=== PATIENT | female | born 1945 | race Caucasian/White ===

== ENCOUNTER 2016-06-13 08:15 | Outpatient (CLI) | payer MEDICARE, MEDICAID | END 2016-06-13 08:16 | disposition home or self-care (01) | DX: Z12.11 Encounter for screening for malignant neoplasm of colon (principal) ==

== ENCOUNTER 2016-06-13 08:48 | Outpatient (CLI) | payer MEDICARE, MEDICAID | END 2016-06-13 08:49 | disposition home or self-care (01) | DX: K72.90 Hepatic failure, unspecified without coma (principal); Z13.6 Encounter for screening for cardiovascular disorders; F31.9 Bipolar disorder, unspecified; F90.9 Attention-deficit hyperactivity disorder, unspecified type; Z12.11 Encounter for screening for malignant neoplasm of colon ==

== ENCOUNTER 2016-06-13 10:42 | Outpatient (CLI) | payer MEDICARE, MEDICAID | END 2016-06-13 10:43 | disposition home or self-care (01) | DX: Z12.31 Encounter for screening mammogram for malignant neoplasm of breast (principal) ==

== ENCOUNTER 2017-05-29 12:00 | Outpatient (CLI) | payer MEDICARE, MEDICAID ==
--- NOTE | 2017-05-29 22:05 | CT Report ---
EXAM: CT TEMPORAL BONE EXAM DATE: 05/29/2017 12:23 PM. CLINICAL HISTORY: Otalgia, left ear. Other acquired stenosis of left. COMPARISON: None. TECHNIQUE: Routine axial CT imaging performed through the temporal bones. Reconstructions: Coronal, s agittal, soft tissue, and bone windows. IV contrast: None. In accordance with CT protocol optimization, one or more of the following dose reduction techniques w ere utilized for this exam: automated exposure control, adjustment of mA and/or KV based on patient s ize, or use of iterative reconstructive technique. FINDINGS: Right Temporal Bone: The right internal auditory canal is normal in appearance. The right labyrinthine segment, geniculate ganglion, tympanic and mastoid segments of the right facial nerve are normal in appearance. The right mastoid air cells, mastoid antrum, aditus ad antrum, and the right middle ear cavity are no rmally aerated. The right auditory ossicles appear to be in normal position without evidence of ossic ular erosion. The right tympanic membrane is without evidence of thickening or perforation. There is a normal appearance of the right external auditory canal. There are 2-1/2 turns of the right cochlea. The modiolus is normal in appearance. The vestibule is normal in appearance. There is a normal bony cap demonstrated over the right superio r semicircular canal. There is no evidence of dehiscence. The right vestibular aqueduct is normal in appearance. The sigmoid plate appears to be intact. Left Temporal Bone: The left internal auditory canal is normal in appearance. The left labyrinthine segment, geniculate g anglion, tympanic and mastoid segments of the left facial nerve are normal in appearance. The left mastoid air cells are normally aerated. The left mastoid antrum, aditus ad antrum, and the l eft middle ear cavity are normally aerated. The left auditory ossicles appear to be in normal positio n without evidence of ossicular erosion. The left tympanic membrane is without evidence of thickening or perforation. There are 2-1/2 turns of the left cochlea. The modiolus is normal in appearance. The vestibule is nor mal in appearance. There is a normal bony cap overlying the left superior semicircular canal. The lef t vestibular aqueduct is normal in appearance. IMPRESSION: 1. Normal CT of the temporal bones. Referring Provider Line: [phone] SITE ID: [id number]
== END 2017-05-29 12:01 | disposition home or self-care (01) ==
LOC: DI 12:00
PROVIDERS: ATTEND Otolaryngology
DX: H92.02 Otalgia, left ear (principal); H61.392 Other acquired stenosis of left external ear canal
CPT/HCPCS: 70480

== ENCOUNTER 2017-07-17 14:48 | Outpatient (CLI) | payer MEDICARE, MEDICAID ==
[2017-07-17 17:45] LABS: BASOPHILS % (AUTO) 0.4 %; EOSINOPHILS # (AUTO) 0.1 10^3/uL (0.0-0.7); EOSINOPHILS % (AUTO) 1.9 %; HGB - HEMOGLOBIN 14.1 g/dL (12.0-16.0); LYMPHOCYTES # (AUTO) 2.2 10^3/uL (1.5-3.5); LYMPHOCYTES % (AUTO) 35.2 %; MEAN CORPUSCULAR HEMOGLOBIN 27.2 pg (27.0-31.0); MEAN CORPUSCULAR HGB CONC 32.7 g/dL (32.0-36.0); MEAN PLATELET VOLUME 8.1 fL (7.9-10.8); MONOCYTES # (AUTO) 0.5 10^3/uL (0.0-1.0); MONOCYTES % (AUTO) 7.7 %; NEUTROPHILS # (AUTO) 3.5 10^3/uL (1.5-6.6); NEUTROPHILS % (AUTO) 54.8 %; PLT - PLATELET COUNT 237 10^3/uL (130-450); RED BLOOD COUNT 5.18 10^6/uL (4.20-5.40); RED CELL DISTRIBUTION WIDTH 14.3 % (12.0-15.0); WHITE BLOOD COUNT 6.4 x10^3/uL (4.8-10.8)
[2017-07-17 18:08] LABS: ALBUMIN 4.4 g/dL (3.2-5.5); ALBUMIN/GLOBULIN RATIO 1.2 (1.0-2.2); ALKALINE PHOSPHATASE 69 IU/L (42-121); ALT ALANINE AMINOTRANSFERASE 18 IU/L (10-60); AST ASPARTATE AMINOTRANSFERASE 21 IU/L (10-42); BILIRUBIN,TOTAL 0.2 mg/dL (0.2-1.0); BUN - BLOOD UREA NITROGEN 24 mg/dL (6-20); CALCIUM 9.2 mg/dL (8.5-10.3); CARBON DIOXIDE - CO2 26 mmol/L (21-32); CHLORIDE 104 mmol/L (101-111); CREATININE 1.1 mg/dL (0.4-1.0); GFR - MDRD 49 (>89); GLUCOSE 99 mg/dL (70-100); LDL CHOLESTEROL,DIRECT 120 mg/dL; SODIUM 137 mmol/L (135-145)
== END 2017-07-17 14:49 | disposition home or self-care (01) ==
LOC: LAB.S 14:48
PROVIDERS: ATTEND Nurse Practitioner Family
DX: Z13.6 Encounter for screening for cardiovascular disorders (principal); I63.9 Cerebral infarction, unspecified; K72.90 Hepatic failure, unspecified without coma; N20.0 Calculus of kidney; B19.20 Unspecified viral hepatitis C without hepatic coma
CPT/HCPCS: 36415; 80053; 83721; 84443; 85025

== ENCOUNTER 2017-07-28 10:13 | Outpatient (CLI) | payer MEDICARE, MEDICAID ==
--- NOTE | 2017-07-28 12:41 | XRAY Report ---
TWO VIEW CHEST: Chest 07/28/2017 COMPARISON: No comparison. INDICATION: Shortness of breath. TECHNIQUE: Two views. FINDINGS: Clear lungs. No pneumothorax or pleural effusion. Mediastinum unremarkable. IMPRESSION: NO EVIDENCE OF ACUTE THORACIC PROCESS. TD: 07/28/2017 12:40 MTDD
== END 2017-07-28 10:14 | disposition home or self-care (01) ==
LOC: DI.S 10:13
PROVIDERS: ATTEND Nurse Practitioner Family
DX: R06.02 Shortness of breath (principal)
CPT/HCPCS: 71046; 93005

== ENCOUNTER 2017-07-30 12:43 | Outpatient (CLI) | payer MEDICARE, MEDICAID | END 2017-07-30 12:44 | disposition home or self-care (01) | LOC: DI 12:43 | PROVIDERS: ATTEND Nurse Practitioner Family | DX: R06.02 Shortness of breath (principal) | CPT/HCPCS: 93306 ==

== ENCOUNTER 2017-07-31 09:26 | Outpatient (CLI) | payer MEDICARE, MEDICAID ==
--- NOTE | 2017-07-31 10:17 | CT Report ---
CT BRAIN WITHOUT CONTRAST: 07/31/2017 CLINICAL INDICATION: Cerebrovascular accident. TECHNIQUE: Axial CT images of the brain were obtained without intravenous contrast. COMPARISON: No previous CT is available for comparison. FINDINGS: The ventricles and sulci demonstrate moderate symmetric enlargement. There is a focal hypodensity in the anterior right internal capsule, likely representing a small lacunar infarction. The basilar cisterns remain patent. There is no evidence of hemorrhage or mass effect. The visualized orbital contents and paranasal sinuses are unremarkable. IMPRESSION: SMALL HYPODENSITY IN THE ANTERIOR RIGHT INTERNAL CAPSULE, LIKELY REPRESENTING A SMALL LACUNAR INFARCTION. CT DOSE REDUCTION STATEMENT In accordance with CT protocol optimization, one or more of the following dose reduction techniques were utilized for this exam: automated exposure control, adjustment of mA and/or KV based on patient size, or use of iterative reconstructive technique. TD: 07/31/2017 10:16
--- NOTE | 2017-07-31 16:16 | Ultrasound Report ---
CAROTID DUPLEX: 07/31/2017 CLINICAL INDICATION: CVA. TECHNIQUE: Real-time sonographic vascular imaging was performed by the firestopper installer through the carotid arteries utilizing both color-flow and Doppler spectral analysis. Multiple insurance claim representative static images were saved for review. RIGHT Vessel PSV cm/sec EDV cm/sec ICA/CCA RSV Ratio Degree of Stenosis Plaque Estimate % RCCA Prox 109 RCCA Dist 86 19 RECA 92 RT BULB 85 22 1.0 KATY Prox 56 17 0.65 KATY Mid 64 12 0.74 KATY Dist 80 26 0.93 RVA 43 RVA flow direction: Antegrade LEFT Vessel PSV cm/sec EDV cm/sec ICA/CCA RSV Ratio Degree of Stenosis Plaque Estimate % LCCA Prox 92 LCCA Dist 96 29 LECA 79 LFT BULB 61 20 0.63 LICA Prox 58 13 0.60 LICA Mid 88 24 0.92 LICA Dist --- --- LVA 26 LVA flow direction: Antegrade Velocity criteria are extrapolated from diameter data as defined by the Society of Radiologists in Ultrasound Consensus Conference Radiology 2003; 229; 340-346. Degree of Stenosis % ICA PSV cm/sec ICA EDV cm/sec ICA/CCA PSV Ratio Plaque Estimate % Normal < 125 < 40 < 2.0 None <50 < 125 <40 < 2.0 < 50 50-69 125-130 40-100 2.0-4.0 >/=50 >/=70 but less than near occlusion > 230 > 100 > 4.0 >/=50 Near occlusion High, low or undetectable Variable Variable Visible Total occlusion Undetectable Not applicable Not applicable No detectable lumen FINDINGS RIGHT: There is minimal plaquing in the right carotid bifurcation, without evidence of a focal hemodynamically significant stenosis. LEFT: There is plaquing in the left carotid bifurcation extending into the left internal carotid artery, with apparent distal occlusion. No flow was identifiable in the distal left internal carotid artery with color or power Doppler. The vertebral arteries demonstrate antegrade flow bilaterally. IMPRESSION: NO VISUALIZED FLOW IN THE LEFT DISTAL INTERNAL CAROTID ARTERY, SUSPICIOUS FOR OCCLUSION. CONFIRMATION WITH EITHER CT ANGIOGRAM OR MR ANGIOGRAM OF THE NECK IS RECOMMENDED. NO EVIDENCE OF A HEMODYNAMICALLY SIGNIFICANT RIGHT CAROTID STENOSIS. PATENT VERTEBRAL ARTERIES BILATERALLY. MTDD
== END 2017-07-31 09:27 | disposition home or self-care (01) ==
LOC: DI 09:26
PROVIDERS: ATTEND Nurse Practitioner Family
DX: I63.9 Cerebral infarction, unspecified (principal)
CPT/HCPCS: 70450; 93880

== ENCOUNTER 2017-08-07 10:25 | Outpatient (CLI) | payer MEDICARE, MEDICAID ==
[2017-08-07 17:52] LABS: BASOPHILS # (AUTO) 0.1 10^3/uL (0.0-0.1); EOSINOPHILS # (AUTO) 0.1 10^3/uL (0.0-0.7); EOSINOPHILS % (AUTO) 2.3 %; HGB - HEMOGLOBIN 13.6 g/dL (12.0-16.0); LYMPHOCYTES # (AUTO) 1.9 10^3/uL (1.5-3.5); LYMPHOCYTES % (AUTO) 35.1 %; MEAN CORPUSCULAR HGB CONC 32.5 g/dL (32.0-36.0); MEAN CORPUSCULAR VOLUME 83.1 fL (81.0-99.0); MEAN PLATELET VOLUME 8.1 fL (7.9-10.8); MONOCYTES # (AUTO) 0.4 10^3/uL (0.0-1.0); MONOCYTES % (AUTO) 7.8 %; NEUTROPHILS # (AUTO) 2.9 10^3/uL (1.5-6.6); NEUTROPHILS % (AUTO) 53.8 %; PLT - PLATELET COUNT 247 10^3/uL (130-450); RED BLOOD COUNT 5.03 10^6/uL (4.20-5.40); RED CELL DISTRIBUTION WIDTH 14.2 % (12.0-15.0); WHITE BLOOD COUNT 5.4 x10^3/uL (4.8-10.8)
[2017-08-07 17:53] LABS: CALCIUM 9.2 mg/dL (8.5-10.3); CREATININE 0.8 mg/dL (0.4-1.0)
== END 2017-08-07 10:26 | disposition home or self-care (01) ==
LOC: LAB.F 10:25
PROVIDERS: ATTEND Nurse Practitioner Family
DX: R94.4 Abnormal results of kidney function studies (principal)
CPT/HCPCS: 36415; 80048; 85025

== ENCOUNTER 2017-09-07 07:50 | Outpatient (CLI) | payer MEDICARE, MEDICAID ==
[2017-09-07] MEDS ORDERED: IOPAMIDOL-300 100 ML VIAL IVP ONE ×2 (07:51→15:46)
[2017-09-07] MEDS ORDERED: IOPAMIDOL-300 100 ML VIAL ONE (09:19)
--- NOTE | 2017-09-07 11:01 | MRI Report ---
EXAM: MRI BRAIN WITHOUT CONTRAST EXAM DATE: 09/07/2017 08:52 AM. CLINICAL HISTORY: Cerebrovascular accident, unspecified mechanism. COMPARISON: No prior MRI. TECHNIQUE: Multiplanar, multisequence T1-weighted and fluid-sensitive MR sequences of the brain were performed. Sequences optimized for routine evaluation. Other: None. IV Contrast: None. FINDINGS: There is a 4-5 mm focus of right basal ganglia diffusion hyperintensity. Possible accompany ing restricted diffusion though the small lesion size makes accurate characterization difficult. Ther e is accompanying focal T2 hyperintensity, findings likely represent a subacute small vessel perforat or lacunar type infarct. No other evidence for acute or recent ischemic infarct or cerebral hemorrhage. Normal brain volume for age. Moderately prominent multifocal nonspecific white matter disease. Findings are likely secondary to ag ing and chronic additional small vessel ischemic disease involving basal ganglia and white matter. No hydrocephalus, mass effect or midline shift. The major arterial skull base flow voids are present. No acute-appearing sinus or mastoid disease. Symmetric unremarkable appearance of the orbits. No evidence for space-occupying mass in the region o f the pituitary fossa or suprasellar cistern. IMPRESSION: 1. Probable acute to subacute ischemic infarct of the right basal ganglia. 2. No acute hemorrhage. 3. There are additional findings of multifocal chronic small vessel ischemic disease. [facility] Referring Provider Line: [phone] SITE ID: [id number]
--- NOTE | 2017-09-08 10:19 | CT Report ---
EXAM: CT ANGIOGRAM HEAD. CT SCAN OF THE HEAD WITHOUT AND WITH CONTRAST. EXAM DATE: 09/07/2017 11:26 AM CLINICAL HISTORY: Recent cerebrovascular accident. MRI findings recently suspicious for right basal g anglia infarct. COMPARISON: No prior CTA. TECHNIQUE: - CT Scan Head: Using a multidetector scanner, axial images were acquired from the foramen magnum to the skull vertex prior to and following contrast administration. - CT Angiogram: Using a multidetector scanner, high-resolution axial images were acquired from the sk ull base through vertex following rapid infusion of intravenous contrast. Reformats: Multiplanar MIP reformats were reconstructed. Nascet criteria used for stenosis measurement. IV Contrast: 80 mL Isovue 300. In accordance with CT protocol optimization, one or more of the following dose reduction techniques w ere utilized for this exam: automated exposure control, adjustment of mA and/or KV based on patient s ize, or use of iterative reconstructive technique. FINDINGS: Brain CT Without Contrast: No acute hemorrhage. No mass effect or shift. No evidence for developing cortical infarct. There are findings consistent with multifocal small vessel ischemic disease including in the region of the righ t basal ganglia where there is hypodensity that may be from a recent small vessel infarct of the righ t basal ganglia. Brain CT With Contrast: No abnormal enhancement. Head CT Angiogram: Moderately prominent atherosclerotic calcifications of the cavernous and paraclinoid segments of both internal carotid arteries. The distal left cavernous ICA shows focal luminal stenosis with calcifica tion, 45-50%. Mild atherosclerotic disease of the cervical vertebral arteries, left greater than right, without ass ociated hemodynamically significant stenosis. Unremarkable basilar artery. Moderate to severe focal short stenosis of the distal left COLOR REPAIRER P1 segment. No acute abnormality or focal flow-limiting stenosis of the right COLOR REPAIRER. Patent well-developed right po sterior communicating artery. Patent anterior communicating artery. No acute abnormality or focal flow-limiting stenosis of the ant erior cerebral arteries. No acute abnormality or focal flow-limiting stenosis of the middle cerebral arteries. No evidence for [place] of [place] aneurysm. No evidence for major dural venous sinus thrombus. IMPRESSION: 1. No CT evidence for intracranial enhancing mass or acute hemorrhage. 2. There are findings of small vessel ischemic disease including right basal ganglia hypodensity cons istent with subacute small vessel infarct. 3. Prominent bilateral cavernous and paraclinoid ICA atherosclerotic calcifications. The distal left cavernous ICA shows short segment 45-50% stenosis. 4. Moderate to severe focal short segment stenosis of the proximal left posterior cerebral artery. 5. No other evidence for intracranial large artery flow-limiting stenosis or occlusion. [facility] Referring Provider Line: [phone] SITE ID: [id number]
--- NOTE | 2017-09-08 10:19 | CT Report ---
EXAM: CT ANGIOGRAM NECK EXAM DATE: 09/07/2017 11:26 AM. CLINICAL HISTORY: Probable recent lacunar-like infarct in the right basal ganglia. COMPARISON: None. TECHNIQUE: Routine axial helical imaging was performed from the skull base through the aortic arch. R econstructions: Routine multiplanar 3D MIP reconstructions. IV Contrast: 80 mL Isovue-300. Evaluation of arterial stenosis is based on a NASCET method of measurement. In accordance with CT protocol optimization, one or more of the following dose reduction techniques w ere utilized for this exam: automated exposure control, adjustment of mA and/or KV based on patient s ize, or use of iterative reconstructive technique. FINDINGS: Prominent chronic multilevel degenerative cervical spinal spondylosis. Multinodular heterogeneously e nhancing thyroid gland. Several mildly expansile nodules are present in both lobes of the thyroid gla nd with peripheral hyperdensity and reduced density centrally, largest 1.5 cm on the right. Multinodu lar goiter is suspected. The top of the aortic arch and the origins of the great vessels are patent. Mild distal aortic arch a therosclerotic calcification. No evidence for proximal flow-limiting subclavian artery stenosis. No acute abnormality or significant stenosis of the cervical vertebral arteries. The cervical carotid arteries are mildly tortuous and there is minimal to mild atherosclerotic diseas e, most evident in the region of the right cervical carotid bifurcation where there is a small amount of soft plaque with a few foci of plaque calcification but there is no evidence for acute abnormalit y or hemodynamically significant stenosis of the cervical carotid arteries in the neck. IMPRESSION: 1. The cervical vertebral and carotid arteries are patent and there is no evidence for acute abnormal ity or focal flow-limiting stenosis. 2. Multinodular heterogeneously enhancing thyroid gland, multinodular goiter suspected. 3. Prominent findings of chronic multilevel degenerative cervical spinal spondylosis. [facility] Referring Provider Line: [phone] SITE ID: [id number]
== END 2017-09-07 07:51 | disposition home or self-care (01) ==
LOC: DI 07:50
PROVIDERS: ATTEND Psychiatry & Neurology Neurology
DX: I63.9 Cerebral infarction, unspecified (principal); E04.2 Nontoxic multinodular goiter; M47.892 Other spondylosis, cervical region; I67.82 Cerebral ischemia; I65.23 Occlusion and stenosis of bilateral carotid arteries; I66.22 Occlusion and stenosis of left posterior cerebral artery
CPT/HCPCS: 70496; 70498; 70551; Q9967

== ENCOUNTER 2017-09-28 14:50 | Outpatient (CLI) | payer MEDICARE, MEDICAID ==
--- NOTE | 2017-09-29 11:54 | Ultrasound Report ---
THYROID ULTRASOUND: 09/28/2017 CLINICAL INDICATION: Goiter. COMPARISON: Carotid ultrasound 07/31/2017, neck CT 09/07/2017. TECHNIQUE: Real-time scanning was performed with fundraising sale representative static images obtained. FINDINGS: The right lobe measures 5.0 x 2.5 x 2.3 cm, and the left lobe measures 5.0 x 2.2 x 2.0 cm. The isthmus measures 7 mm. The thyroid is diffusely heterogeneous with innumerable bilateral nodules. The largest in the midpole of the right lobe measures 2.2 x 1.9 x 1.4 cm. It is avascular and isoechoic. In the upper pole of the right lobe, there is a 2.2 x 1.4 x 1.0 cm heterogeneous nodule with associated calcifications. In the upper pole of the left lobe, there is a 1.7 x 1.6 x 1.2 cm nodule, which is heterogeneous with associated calcifications. A 2.0 x 2.0 x 1.4 cm nodule is also noted in the isthmus. IMPRESSION: 1. DIFFUSE MULTINODULAR GOITER. 2. THERE ARE 2 NODULES WITH HETEROGENEOUS ECHOTEXTURE AND ASSOCIATED CALCIFICATIONS. FINE NEEDLE ASPIRATION OF THESE MOST SUSPICIOUS NODULES WOULD BE RECOMMENDED. TD: 09/29/2017 10:38
== END 2017-09-28 14:51 | disposition home or self-care (01) ==
LOC: DI 14:50
PROVIDERS: ATTEND Nurse Practitioner Family
DX: E04.2 Nontoxic multinodular goiter (principal)
CPT/HCPCS: 76536

== ENCOUNTER 2017-09-28 16:23 | Emergency (ER) | payer MEDICARE, MEDICAID ==
--- NOTE | 2017-09-28 16:46 | ED Physician Documentation ---
PD HPI FOCAL NEURO - Stated complaint Stated Complaint: DBL VISION/HEAD PX - Chief complaint Chief Complaint: Neuro - History obtained from History obtained from: Patient, Friend - History of Present Illness Timing - onset: Other (She had a small right basal ganglia CVA couple of months ago. She has had gradual onset left-sided headaches over the last few weeks and starting yesterday she has Had diplopia that is only when looking at a distance. She recently saw her Eye doctor and her eyes were okay. There are no symptoms of stroke other than the diplopia and headache.) Review of Systems Ten Systems: 10 systems reviewed and negative Constitutional: denies: Fever, Chills Eyes: denies: Loss of vision, Decreased vision Cardiac: denies: Chest pain / pressure, Palpitations PD PAST MEDICAL HISTORY - Past Surgical History Past Surgical History: Yes - Present Medications Home Medications: Ambulatory Orders Medication Instructions Recorded Confirmed Aspirin 81 mg PO 09/28/17 Atorvastatin [Lipitor] 20 mg 09/28/17 Clopidogrel [Plavix] 75 mg PO DAILY #30 tablet 09/28/17 Niacin [Plain Niacin] 150 mg PO 09/28/17 - Allergies Allergies/Adverse Reactions: Allergies Allergy/AdvReac Type Severity Reaction Status Date / Time No Known Drug Allergies Allergy Verified 03/31/13 19:13 - Social History Does the pt smoke?: Yes Smoking Status: Current every day smoker Does the pt drink ETOH?: No Does the pt have substance abuse?: No - Immunizations Immunizations are current?: No Immunizations: TDAP >10years/unknown PD ED PE NORMAL - Vitals Vital signs reviewed: Yes - General General: Alert and oriented X 3, No acute distress - HEENT HEENT: PERRL, EOMI - Neck Neck: Supple, no meningeal sign, No bony TTP - Cardiac Cardiac: RRR, No murmur - Respiratory Respiratory: No respiratory distress, Clear bilaterally - Neuro Neuro: Alert and oriented X 3, geriatric aide 2-12 intact Eye Opening: Spontaneous Motor: Obeys Commands Verbal: Oriented GCS Score: 15 - Psych Psych: Normal mood, Normal affect NIHSS - Time Time: 16:35 - Level of Consciousness Level of consciousness: (0) Alert, Keenly responsive LOC Questions: (0) Answers both Q's correct LOC Commands: (0) Performs both correctly - Gaze Best Gaze: (0) Normal - Visual Visual: (0) No loss - Facial Palsy Facial Palsy: (0) Normal, symmetrical movement - Motor Arms (both separate) Motor Arm (right): (0) No drift Motor Arm (left): (0) No drift - Motor Legs (both separate) Motor Leg (right): (0) No drift Motor Leg (left): (0) No drift - Limb Ataxia Limb Ataxia: (0) Absent - Sensory Sensory: (0) Normal - Best Language Best Language: (0) No aphasia - Dysarthria Dysarthria: (0) Normal - Extinction and Inattention (formally neg Extinction and inattention: (0) No abnormality - Total Score/Results Total Score/Result: 0 Results - Vitals Vitals: Vital Signs - 24 hr 09/28/17 09/28/17 09/28/17 16:29 18:19 18:33 Temperature 36.8 C Heart Rate 76 85 66 Respiratory 18 15 17 Rate Blood Pressure 203/104 H 192/89 H 168/82 H O2 Saturation 100 100 99 09/28/17 20:07 Temperature Heart Rate 61 Respiratory 22 Rate Blood Pressure 179/101 H O2 Saturation 97 Oxygen O2 Source Room air - Labs Labs: Laboratory Tests 09/28/17 09/28/17 09/28/17 16:48 16:48 16:48 WBC 5.7 RBC 5.02 Hgb 13.7 Hct 42.0 MCV 83.7 MCH 27.3 MCHC 32.6 RDW 14.6 Plt Count 226 MPV 7.5 L Neut # 2.8 Lymph # 2.3 [place] # 0.4 Eos # 0.1 Baso # 0.0 Absolute Nucleated RBC 0.01 Nucleated RBC % 0.1 PT 11.9 INR 1.1 Sodium 138 Potassium 3.5 Chloride 102 Carbon Dioxide 26 Anion Gap 10.0 BUN 22 H Creatinine 0.9 Estimated GFR (MDRD) 62 L Glucose 150 H Calcium 9.5 Total Bilirubin 0.6 AST 26 ALT 22 Alkaline Phosphatase 65 Total Protein 8.1 Albumin 4.7 Globulin 3.4 Albumin/Globulin Ratio 1.4 Lipase 48 - Rads (name of study) MRI Brain Radiology: Discussed with rads (Slight worsening of the same CVA seen a month ago.) PD MEDICAL DECISION MAKING - ED course ED course: 71-year-old woman with strokelike symptoms. She had a recent CVA and she was re -MRI and the CVA has increased in size. As such we will add Plavix to her aspirin and advised close neurologic follow-up. Departure - Departure Disposition: 01 Home, Self Care Clinical Impression: Cerebrovascular accident (CVA) Qualifiers: CVA mechanism: unspecified Qualified Code(s): I63.9 - Cerebral infarction, unspecified Condition: Good Record reviewed to determine appropriate education?: Yes Instructions: ED Stroke Completed Prescriptions: Clopidogrel [Plavix] 75 mg PO DAILY #30 tablet Comments: Continue your current medications including aspirin. Follow-up with your neurologist with the MRI report, next available appointment. Return if worse.
[2017-09-28 16:53] LABS: BASOPHILS % (AUTO) 0.6 %; EOSINOPHILS # (AUTO) 0.1 10^3/uL (0.0-0.7); EOSINOPHILS % (AUTO) 2.5 %; HGB - HEMOGLOBIN 13.7 g/dL (12.0-16.0); LYMPHOCYTES # (AUTO) 2.3 10^3/uL (1.5-3.5); LYMPHOCYTES % (AUTO) 40.6 %; MEAN CORPUSCULAR HEMOGLOBIN 27.3 pg (27.0-31.0); MEAN CORPUSCULAR HGB CONC 32.6 g/dL (32.0-36.0); MEAN CORPUSCULAR VOLUME 83.7 fL (81.0-99.0); MEAN PLATELET VOLUME 7.5 fL (7.9-10.8); MONOCYTES # (AUTO) 0.4 10^3/uL (0.0-1.0); MONOCYTES % (AUTO) 7.1 %; NEUTROPHILS # (AUTO) 2.8 10^3/uL (1.5-6.6); NEUTROPHILS % (AUTO) 49.2 %; PLT - PLATELET COUNT 226 10^3/uL (130-450); RED BLOOD COUNT 5.02 10^6/uL (4.20-5.40); RED CELL DISTRIBUTION WIDTH 14.6 % (12.0-15.0); WHITE BLOOD COUNT 5.7 x10^3/uL (4.8-10.8)
[2017-09-28 16:59] LABS: INR 1.1 (0.8-1.2); PT - PROTHROMBIN TIME 11.9 secs (9.9-12.6)
[2017-09-28 17:03] LABS: ALBUMIN 4.7 g/dL (3.2-5.5); ALBUMIN/GLOBULIN RATIO 1.4 (1.0-2.2); BILIRUBIN,TOTAL 0.6 mg/dL (0.2-1.0); CALCIUM 9.5 mg/dL (8.5-10.3); CREATININE 0.9 mg/dL (0.4-1.0); TOTAL PROTEIN 8.1 g/dL (6.7-8.2)
--- NOTE | 2017-09-28 20:40 | MRI Preliminary Report ---
Exam: MRI BRAIN W/O Impression: 1. There is an acute to subacute cerebral infarction involving the right putamen without evidence of overt hemorrhagic transformation. Without the patient's prior imaging study I cannot determine if the re is been an interval change in the patient's known recent cerebral infarction. 2. There is mild to moderate degree of chronic small vessel ischemia and mild degree of generalized v olume loss. 3. There is no evidence of brain mass. The critical result notification system was initiated by Dr. Kannan Arenas at 18:25 hrs on 09/28/17. Addendum: The patient's prior MRI of the brain from 09/07/2017 has become available for review. There was diffu naomi restriction within the right putamen on the previous MRI but has significantly increased in size previously measuring 2.8 mm and now measuring 6 mm. Therefore, there has either been a recent new ar ea of cerebral infarction which is surrounding the previous area versus represents residual areas of signal change secondary to a more remote progression of that area of infarction. Overall given the re duced signal intensity on the ADC map a more recent area of superimposed infarction on the older infa rction would be somewhat favored. Recommend correlation with clinical symptoms. The above findings were discussed with CATE Boateng by Dr. Kannan Arenas at 20:38 hrs on . SITE ID: [id number]
--- NOTE | 2017-09-28 20:46 | MRI Report ---
EXAM: MRI BRAIN WITHOUT CONTRAST EXAM DATE: 09/28/2017 05:55 PM. CLINICAL HISTORY: Diplopia, recent CVA. COMPARISON: None. TECHNIQUE: Multiplanar, multisequence T1-weighted and fluid-sensitive MR sequences of the brain were performed. Sequences optimized for routine evaluation. Other: None. IV Contrast: None. FINDINGS: There is diffusion restriction demonstrated within the right putamen (14, 505). The pituitary and kiko la are normal. The corpus callosum is of normal size and configuration. The craniocervical junction is normal. The cerebral vascular flow voids are patent. The images are degraded by motion. The T2* sequence is normal. There is no evidence of subacute or ch ronic hemorrhage. The imaged portions of the paranasal sinuses are normally aerated. The bilateral parotid spaces exhib it normal signal intensity. The optic nerves demonstrate symmetric signal intensity and size. The cerebral vascular flow voids a re patent. The FLAIR images demonstrate multiple punctate and confluent areas of T2 hyperintensity within the jones bcortical, deep, and periventricular white matter. This is consistent with a mild to moderate degree of chronic small vessel ischemia. There is enlargement of the lateral ventricles and the third ventri ji but not out of proportion to the enlargement of the cerebral sulci. This is consistent with a mil d degree of generalized volume loss. IMPRESSION: 1. There is an acute to subacute cerebral infarction involving the right putamen without evidence of overt hemorrhagic transformation. Without the patient's prior imaging study, I cannot determine if th ere has been an interval change in the patient's known recent cerebral infarction. 2. There is a mild to moderate degree of chronic small vessel ischemia and a mild degree of generaliz ed volume loss. 3. There is no evidence of brain mass. The critical result notification system was initiated by Dr. Kannan Arenas at 18:25 hrs on 09/28/17. Addendum: The patient's prior MRI of the brain from 09/07/2017 has become available for review. There was diffu naomi restriction within the right putamen on the previous MRI but has significantly increased in size previously measuring 2.8 mm and now measuring 6 mm. Therefore, there has either been a recent new ar ea of cerebral infarction which is surrounding the previous area versus represents residual areas of signal change secondary to a more remote progression of that area of infarction. Overall given the re duced signal intensity on the ADC map, a more recent area of superimposed infarction on the older inf arction would be somewhat favored. Recommend correlation with clinical symptoms. The above findings were discussed with CATE Boateng by Dr. Kannan Arenas at 20:38 hrs on . Referring Provider Line: [phone] SITE ID: [id number]
[2017-09-28] MEDS ORDERED: CLOPIDOGREL 75 MG TABLET PO STA (20:49)
[2017-09-28 21:00] VITALS: BP 192/91
== END 2017-09-28 21:01 | disposition home or self-care (01) ==
LOC: ED 16:23
DX: I63.9 Cerebral infarction, unspecified (principal); R51 Headache; H53.2 Diplopia; F17.200 Nicotine dependence, unspecified, uncomplicated; Z79.82 Long term (current) use of aspirin; E04.2 Nontoxic multinodular goiter
CPT/HCPCS: 36415; 70551; 76536; 80053; 83690; 85025; 85610; 99284; A9270

== ENCOUNTER 2017-11-28 08:06 | Outpatient (CLI) | payer MEDICARE, MEDICAID ==
[2017-11-28 13:32] LABS: ALBUMIN 3.7 g/dL (3.2-5.5); ALKALINE PHOSPHATASE 58 IU/L (42-121); ALT ALANINE AMINOTRANSFERASE 18 IU/L (10-60); AST ASPARTATE AMINOTRANSFERASE 19 IU/L (10-42); BILIRUBIN,TOTAL 0.7 mg/dL (0.2-1.0); BUN - BLOOD UREA NITROGEN 20 mg/dL (6-20); CALCIUM 8.7 mg/dL (8.5-10.3); CARBON DIOXIDE - CO2 23 mmol/L (21-32); CHLORIDE 107 mmol/L (101-111); CHOL/HDL RATIO 4.7 (<4.4); CHOLESTEROL 159 mg/dL; CREATININE 0.8 mg/dL (0.4-1.0); GFR - MDRD 71 (>89); GLUCOSE 115 mg/dL (70-100); HDL CHOLESTEROL 34 mg/dL; LDL CHOLESTEROL,CALCULATED 88 mg/dL; LDL/HDL RATIO 2.6 (<4.4); SODIUM 138 mmol/L (135-145); TOTAL PROTEIN 7.3 g/dL (6.7-8.2); VLDL CHOLESTEROL 37 mg/dL
== END 2017-11-28 08:07 | disposition home or self-care (01) ==
LOC: LAB.F 08:06
PROVIDERS: ATTEND Nurse Practitioner Family
DX: K72.90 Hepatic failure, unspecified without coma (principal); I10 Essential (primary) hypertension; I63.9 Cerebral infarction, unspecified
CPT/HCPCS: 36415; 80053; 80061; 83721

== ENCOUNTER 2018-03-02 13:27 | Outpatient (CLI) | payer MEDICARE, MEDICAID ==
[~2018-03-02 13:27] MED LIST: IOTHALAMATE MEGLUMINE 50 ML VIAL ONE
[2018-03-02] MEDS ORDERED: IOTHALAMATE MEGLUMINE 50 ML VIAL ONE (13:36)
[2018-03-02] MEDS ORDERED: IOTHALAMATE MEGLUMINE 50 ML VIAL IVP ONE (15:13)
[2018-03-02] MEDS ORDERED: methylPREDNISolone ACETATE 80 MG/ML VIAL IU ONE (15:13)
[2018-03-02] MEDS ORDERED: BUPIVACAINE 0.25% PF 30 ML VIAL SUBQ ONE (15:13)
--- NOTE | 2018-03-02 16:45 | XRAY Report ---
Reason: PRIMARY OSTEOARTHRITIS OF RIGHT HIP Procedure Date: 03/02/2018 Accession Number: [id number] / [id number] Procedure: FL - Inj/Aspiration Major Joint CPT Code: FULL RESULT: EXAM: Inj/Aspiration Major Joint DATE: 03/02/2018 3:09 PM CLINICAL HISTORY: PRIMARY OSTEOARTHRITIS OF RIGHT HIP severe right hip pain COMPARISON: None. TECHNIQUE: The risks, benefits, and alternatives of the procedure were discussed with the patient. All questions were answered. Written and verbal consent were obtained. The right hip joint was marked under fluoroscopy and prepped and draped in a sterile manner. Local anesthesia was performed with 1% lidocaine. A 22-gauge needle was then inserted into the hip joint. Intra-articular positioning of the needle tip was confirmed with the injection of a small amount of Conray. 80 mg of methylprednisolone and approximately 5 cc of bupivacaine were then injected. The needle was removed without immediate complication. Other: None. Fluoroscopic exposure time: 1 minute 5 seconds. Number of fluoroscopic images: 3. FINDINGS: Bones and Joints: No fracture or subluxation. Degenerative changes are present. Injection: Fluoroscopic images demonstrate needle placement and contrast in the hip joint. The patient experienced significant decrease in her pain post injection IMPRESSION: Successful fluoroscopically guided steroid and anesthetic injection of the right hip. RADIA
== END 2018-03-02 13:28 | disposition home or self-care (01) ==
LOC: DI 13:27
PROVIDERS: ATTEND Orthopaedic Surgery
DX: M16.11 Unilateral primary osteoarthritis, right hip (principal)
CPT/HCPCS: 20610; Q9961

== ENCOUNTER 2018-05-21 12:42 | Outpatient (CLI) | payer MEDICARE, MEDICAID ==
--- NOTE | 2018-05-21 16:29 | XRAY Report ---
Reason: HIP JOINT PAIN Procedure Date: 05/21/2018 Accession Number: [id number] / [id number] Procedure: XR - Hip w/Pelvis 2-3V RT CPT Code: FULL RESULT: EXAM: RIGHT HIP AND PELVIS RADIOGRAPHY. EXAM DATE: 05/21/2018 03:44 PM. HISTORY: Hip joint pain. COMPARISONS: None. TECHNIQUE: 1 view of the pelvis and 1 view of the hip. FINDINGS: Bones: Normal. No fracture or bone lesion. Joints: There is asymmetric narrowing of the hip joint space, right greater than left moderate to severe on this side. The sacroiliac joints are congruent. The pubic symphysis is normal. Soft Tissues: Normal. No soft tissue swelling. IMPRESSION: Degenerative changes with no fracture or dislocation detected. RADIA
== END 2018-05-21 12:43 | disposition home or self-care (01) ==
LOC: DI 12:42
PROVIDERS: ATTEND Nurse Practitioner Family
DX: M16.0 Bilateral primary osteoarthritis of hip (principal)

== ENCOUNTER 2018-07-23 09:13 | Outpatient (CLI) | payer MEDICARE, MEDICAID ==
[2018-07-23 18:20] LABS: BASOPHILS # (AUTO) 0.1 10^3/uL (0.0-0.1); BASOPHILS % (AUTO) 1.1 %; EOSINOPHILS # (AUTO) 0.1 10^3/uL (0.0-0.7); EOSINOPHILS % (AUTO) 1.5 %; HGB - HEMOGLOBIN 12.9 g/dL (12.0-16.0); LYMPHOCYTES # (AUTO) 1.9 10^3/uL (1.5-3.5); LYMPHOCYTES % (AUTO) 33.4 %; MEAN CORPUSCULAR HEMOGLOBIN 27.4 pg (27.0-31.0); MEAN CORPUSCULAR HGB CONC 32.5 g/dL (32.0-36.0); MEAN CORPUSCULAR VOLUME 84.4 fL (81.0-99.0); MEAN PLATELET VOLUME 7.7 fL (7.9-10.8); MONOCYTES # (AUTO) 0.4 10^3/uL (0.0-1.0); MONOCYTES % (AUTO) 7.5 %; NEUTROPHILS # (AUTO) 3.2 10^3/uL (1.5-6.6); NEUTROPHILS % (AUTO) 56.5 %; PLT - PLATELET COUNT 252 10^3/uL (130-450); RED BLOOD COUNT 4.72 10^6/uL (4.20-5.40); RED CELL DISTRIBUTION WIDTH 14.9 % (12.0-15.0); WHITE BLOOD COUNT 5.7 x10^3/uL (4.8-10.8)
[2018-07-23 19:10] LABS: HB2 TOTAL 14.1 g/dL; HEMOGLOBIN A1C 0.68 g/dL; HEMOGLOBIN A1C % 6.6 % (4.6-6.2)
[2018-07-23 19:17] LABS: ALBUMIN 3.8 g/dL (3.2-5.5); ALKALINE PHOSPHATASE 62 IU/L (42-121); ALT ALANINE AMINOTRANSFERASE 17 IU/L (10-60); AST ASPARTATE AMINOTRANSFERASE 20 IU/L (10-42); BILIRUBIN,TOTAL 0.5 mg/dL (0.2-1.0); BUN - BLOOD UREA NITROGEN 24 mg/dL (6-20); CALCIUM 9.2 mg/dL (8.5-10.3); CARBON DIOXIDE - CO2 24 mmol/L (21-32); CHLORIDE 103 mmol/L (101-111); CHOL/HDL RATIO 4.3 (<4.4); CHOLESTEROL 170 mg/dL; CREATININE 0.8 mg/dL (0.4-1.0); GFR - MDRD 71 (>89); GLUCOSE 117 mg/dL (70-100); HDL CHOLESTEROL 40 mg/dL; LDL CHOLESTEROL,CALCULATED 92 mg/dL; LDL/HDL RATIO 2.3 (<4.4); SODIUM 137 mmol/L (135-145); TOTAL PROTEIN 7.5 g/dL (6.7-8.2); VLDL CHOLESTEROL 38 mg/dL
== END 2018-07-23 09:14 | disposition home or self-care (01) ==
LOC: LAB.F 09:13
PROVIDERS: ATTEND Nurse Practitioner Family
DX: E78.5 Hyperlipidemia, unspecified (principal); R73.01 Impaired fasting glucose
CPT/HCPCS: 36415; 80053; 80061; 83036; 83721; 84443; 85025

== ENCOUNTER 2018-07-23 13:18 | Outpatient (CLI) | payer MEDICARE, MEDICAID | END 2018-07-23 13:19 | disposition home or self-care (01) | LOC: DI 13:18 | PROVIDERS: ATTEND Nurse Practitioner Family | DX: R01.1 Cardiac murmur, unspecified (principal); I10 Essential (primary) hypertension; E78.5 Hyperlipidemia, unspecified; R73.01 Impaired fasting glucose | CPT/HCPCS: 36415; 80053; 80061; 83036; 83721; 84443; 85025; 93306 ==

== ENCOUNTER 2018-12-20 09:16 | Outpatient (CLI) | payer MEDICARE, MEDICAID ==
[2018-12-20 17:36] LABS: BASOPHILS % (AUTO) 0.6 %; EOSINOPHILS # (AUTO) 0.1 10^3/uL (0.0-0.7); EOSINOPHILS % (AUTO) 1.5 %; HGB - HEMOGLOBIN 13.6 g/dL (12.0-16.0); LYMPHOCYTES # (AUTO) 2.1 10^3/uL (1.5-3.5); LYMPHOCYTES % (AUTO) 31.6 %; MEAN CORPUSCULAR HGB CONC 31.6 g/dL (32.0-36.0); MEAN CORPUSCULAR VOLUME 88.5 fL (81.0-99.0); MEAN PLATELET VOLUME 9.9 fL (7.9-10.8); MONOCYTES # (AUTO) 0.5 10^3/uL (0.0-1.0); MONOCYTES % (AUTO) 8.2 %; NEUTROPHILS # (AUTO) 3.8 10^3/uL (1.5-6.6); NEUTROPHILS % (AUTO) 57.8 %; PLT - PLATELET COUNT 246 10^3/uL (130-450); RED BLOOD COUNT 4.86 10^6/uL (4.20-5.40); RED CELL DISTRIBUTION WIDTH 14.1 % (12.0-15.0); WHITE BLOOD COUNT 6.6 x10^3/uL (4.8-10.8)
[2018-12-20 18:07] LABS: BUN - BLOOD UREA NITROGEN 24 mg/dL (6-20); CALCIUM 9.3 mg/dL (8.5-10.3); CARBON DIOXIDE - CO2 24 mmol/L (21-32); CHLORIDE 110 mmol/L (101-111); CHOL/HDL RATIO 4.1 (<4.4); CHOLESTEROL 139 mg/dL; CREATININE 0.7 mg/dL (0.4-1.0); GFR - MDRD 82 (>89); GLUCOSE 130 mg/dL (70-100); HDL CHOLESTEROL 34 mg/dL; LDL CHOLESTEROL,CALCULATED 66 mg/dL; LDL/HDL RATIO 1.9 (<4.4); SODIUM 144 mmol/L (135-145); VLDL CHOLESTEROL 39 mg/dL
== END 2018-12-20 09:17 | disposition home or self-care (01) ==
LOC: LAB.S 09:16
PROVIDERS: ATTEND Internal Medicine Cardiovascular Disease
DX: I10 Essential (primary) hypertension (principal); E78.5 Hyperlipidemia, unspecified
CPT/HCPCS: 36415; 80048; 80061; 83721; 85025

== ENCOUNTER 2020-06-18 08:00 | Outpatient (CLI) | payer MEDICARE, MEDICAID ==
--- NOTE | 2020-06-18 13:08 | XRAY Report ---
PROCEDURE: Hip w/Pelvis 1V RT INDICATIONS: RIGHT HIP PAIN TECHNIQUE: AP pelvis with lateral view(s) of the right hip(s). COMPARISON: X-ray hip/pelvis 05/21/2018 FINDINGS: Bones: No fractures or dislocations. Pelvic ring appears intact. No suspicious bony lesions. Righ t hip arthroplasty is present. Hardware is intact without hardware fracture or periprosthetic looseni ng. Mild degenerative changes are present within the left hip. Degenerative changes are present withi n the lower lumbar spine. Soft tissues: The visualized bowel gas pattern is normal. No suspicious soft tissue calcifications. IMPRESSION: 1. Right hip arthroplasty. 2. Mild osteoarthritis of the left hip. Reviewed by: Claudine Dorman MD on 06/18/2020 1:07 PM PST Approved by: Claudine Dorman MD on 06/18/2020 1:07 PM [facility] Station ID: [id number]
== END 2020-06-18 23:59 | disposition home or self-care (01) ==
LOC: DI.S 08:00
PROVIDERS: ATTEND Physician Assistant Medical
DX: M16.11 Unilateral primary osteoarthritis, right hip (principal); Z96.641 Presence of right artificial hip joint

== ENCOUNTER 2020-07-11 09:30 | Outpatient (CLI) | payer MEDICARE, MEDICAID ==
[2020-07-11 15:10] LABS: BASOPHILS % (AUTO) 0.6 %; EOSINOPHILS # (AUTO) 0.1 10^3/uL (0.0-0.7); EOSINOPHILS % (AUTO) 1.5 %; HCT - HEMATOCRIT 42.5 % (37.0-47.0); HGB - HEMOGLOBIN 13.4 g/dL (12.0-16.0); LYMPHOCYTES # (AUTO) 1.7 10^3/uL (1.5-3.5); LYMPHOCYTES % (AUTO) 32.8 %; MEAN CORPUSCULAR HEMOGLOBIN 27.2 pg (27.0-31.0); MEAN CORPUSCULAR HGB CONC 31.5 g/dL (32.0-36.0); MEAN CORPUSCULAR VOLUME 86.4 fL (81.0-99.0); MONOCYTES # (AUTO) 0.5 10^3/uL (0.0-1.0); MONOCYTES % (AUTO) 9.4 %; NEUTROPHILS # (AUTO) 2.9 10^3/uL (1.5-6.6); NEUTROPHILS % (AUTO) 55.5 %; PLT - PLATELET COUNT 229 10^3/uL (130-450); RED BLOOD COUNT 4.92 10^6/uL (4.20-5.40); RED CELL DISTRIBUTION WIDTH 14.2 % (12.0-15.0); WHITE BLOOD COUNT 5.2 x10^3/uL (4.8-10.8)
[2020-07-11 15:23] LABS: ALBUMIN 4.2 g/dL (3.2-5.5); ALBUMIN/GLOBULIN RATIO 1.2 (1.0-2.2); ALKALINE PHOSPHATASE 64 IU/L (42-121); ALT ALANINE AMINOTRANSFERASE 18 IU/L (10-60); AST ASPARTATE AMINOTRANSFERASE 19 IU/L (10-42); BILIRUBIN,TOTAL 0.7 mg/dL (0.2-1.0); BUN - BLOOD UREA NITROGEN 20 mg/dL (6-20); CALCIUM 9.2 mg/dL (8.5-10.3); CARBON DIOXIDE - CO2 25 mmol/L (21-32); CHLORIDE 104 mmol/L (101-111); CHOL/HDL RATIO 4.4 (<4.4); CHOLESTEROL 150 mg/dL; CREATININE 0.7 mg/dL (0.4-1.0); GFR - MDRD 82 (>89); GLUCOSE 141 mg/dL (70-100); HDL CHOLESTEROL 34 mg/dL; LDL CHOLESTEROL,CALCULATED 64 mg/dL; LDL/HDL RATIO 1.9 (<4.4); POTASSIUM 3.8 mmol/L (3.5-5.0); SODIUM 138 mmol/L (135-145); TOTAL PROTEIN 7.6 g/dL (6.7-8.2); TRIGLYCERIDES 260 mg/dL; VLDL CHOLESTEROL 52 mg/dL
== END 2020-07-11 09:31 | disposition home or self-care (01) ==
LOC: LAB.S 09:30
PROVIDERS: ATTEND Internal Medicine
DX: I10 Essential (primary) hypertension (principal); E78.5 Hyperlipidemia, unspecified
CPT/HCPCS: 36415; 80053; 80061; 83721; 85025

== ENCOUNTER 2020-11-18 07:01 | Outpatient (CLI) | payer MEDICARE, MEDICAID ==
--- NOTE | 2020-11-18 10:19 | MRI Report ---
PROCEDURE: Lumbar Spine W/O INDICATIONS: LUMBAR RADCIULOPATHY TECHNIQUE: Noncontrast sagittal T1 spin echo and T2 fast echo, sagittal STIR, axial T1 and T2 fast spin echo thr ough the lumbar spine. In cases with scoliosis, additional coronal T2 fast spin echo may be performe d. COMPARISON: None. FINDINGS: Image quality: Excellent. Alignment and Curvature: No plain films are available for comparison. Thus, for numbering purposes, 5 lumbar type vertebral bodies will be presumed for the current report. This should be confirmed with plain film correlation prior to any lumbar spinal intervention. Alignment is normal. Bone Marrow: Marrow is of normal overall signal. No acute vertebral body compression fractures. Mi ld reactive signal throughout the endplates of the lumbar and lower thoracic spine. Spinal Cord: Conus medullaris terminates at the lower L1 level. Visualized cord demonstrates normal signal and size. Paraspinous Soft Tissues: No paravertebral masses. T12-L1: Mild disc desiccation and disc height loss. No significant canal, nor foraminal stenosis. L1-L2: Moderate disc desiccation. Mild facet and ligament flavum hypertrophy. No significant canal stenosis. Mild bilateral foraminal stenosis L2-L3: Moderate disc desiccation. Mild diffuse disc bulge. Mild facet and ligament flavum hypertro phy. Mild epidural lipomatosis. Mild canal stenosis. Mild bilateral foraminal stenosis. L3-L4: Mild disc desiccation and diffuse disc bulge. Mild facet and ligament flavum hypertrophy. Mi ld canal stenosis. Moderate right and mild left foraminal stenosis. L4-L5: Moderate disc desiccation. Mild disc height loss. Mild diffuse disc bulge with superimposed left far lateral disc protrusion. Mild facet and ligament flavum hypertrophy. Mild epidural lipomatos is. Mild canal stenosis. Moderate to severe left foraminal stenosis. Moderate right foraminal stenosi s. Mild left L4 nerve root compression. Mild posterior deviation of the left L5 nerve root within the lateral recess. L5-S1: Moderate disc height loss and desiccation. Mild diffuse disc bulge. Mild facet and ligament flavum hypertrophy. Mild epidural lipomatosis. Mild canal stenosis. Moderate to severe left and moder ate right foraminal stenosis. Mild left L5 nerve root compression IMPRESSION: 1. Multilevel degenerative disc and facet disease, in addition to epidural lipomatosis and ligamentum flavum hypertrophy. 2. Mild multilevel canal stenoses. 3. Multilevel foraminal stenoses, worst at L4-L5 and L5-S1 where there is associated intraforaminal n erve root compression. 4. Mild posterior deviation of the left L5 nerve root within the lateral recess at the L4-L5 disc spa ce level. 5. Recommend correlation with clinical symptoms to ascertain relevance of these findings. 6. Five lumbar type vertebral bodies were presumed for the purposes of the current report. Correlati on with plainfilms for numbering purposes is recommended prior to any lumbar spinal intervention. Reviewed by: Carolin Chen MD on 11/18/2020 10:18 AM PDT Approved by: Carolin hCen MD on 11/18/2020 10:18 AM PDT Station ID: [id number]
== END 2020-11-18 07:02 | disposition home or self-care (01) ==
LOC: DI 07:01
PROVIDERS: ATTEND Orthopaedic Surgery
DX: M51.16 Intervertebral disc disorders with radiculopathy, lumbar region (principal); M48.061 Spinal stenosis, lumbar region without neurogenic claudication; M51.17 Intervertebral disc disorders with radiculopathy, lumbosacral region; M48.07 Spinal stenosis, lumbosacral region; M47.816 Spondylosis without myelopathy or radiculopathy, lumbar region; M47.817 Spondylosis without myelopathy or radiculopathy, lumbosacral region

== ENCOUNTER 2021-01-05 09:14 | Outpatient (CLI) | payer MEDICARE, MEDICAID ==
[2021-01-05 14:43] LABS: BASOPHILS % (AUTO) 0.6 %; EOSINOPHILS # (AUTO) 0.1 10^3/uL (0.0-0.7); EOSINOPHILS % (AUTO) 1.3 %; HGB - HEMOGLOBIN 13.8 g/dL (12.0-16.0); LYMPHOCYTES # (AUTO) 1.8 10^3/uL (1.5-3.5); LYMPHOCYTES % (AUTO) 27.2 %; MEAN CORPUSCULAR HEMOGLOBIN 28.2 pg (27.0-31.0); MEAN CORPUSCULAR HGB CONC 32.1 g/dL (32.0-36.0); MEAN CORPUSCULAR VOLUME 87.9 fL (81.0-99.0); MEAN PLATELET VOLUME 10.1 fL (7.9-10.8); MONOCYTES # (AUTO) 0.5 10^3/uL (0.0-1.0); MONOCYTES % (AUTO) 7.9 %; NEUTROPHILS # (AUTO) 4.2 10^3/uL (1.5-6.6); NEUTROPHILS % (AUTO) 62.7 %; PLT - PLATELET COUNT 262 10^3/uL (130-450); RED BLOOD COUNT 4.89 10^6/uL (4.20-5.40); RED CELL DISTRIBUTION WIDTH 14.6 % (12.0-15.0); WHITE BLOOD COUNT 6.7 x10^3/uL (4.8-10.8)
[2021-01-05 16:22] LABS: ALBUMIN 4.3 g/dL (3.2-5.5); ALBUMIN/GLOBULIN RATIO 1.3 (1.0-2.2); ALKALINE PHOSPHATASE 69 IU/L (42-121); ALT ALANINE AMINOTRANSFERASE 16 IU/L (10-60); AST ASPARTATE AMINOTRANSFERASE 17 IU/L (10-42); BILIRUBIN,TOTAL 0.7 mg/dL (0.2-1.0); BUN - BLOOD UREA NITROGEN 25 mg/dL (6-20); CALCIUM 9.2 mg/dL (8.5-10.3); CARBON DIOXIDE - CO2 25 mmol/L (21-32); CHLORIDE 107 mmol/L (101-111); CHOL/HDL RATIO 4.6 (<4.4); CHOLESTEROL 174 mg/dL; CREATININE 0.8 mg/dL (0.4-1.0); GFR - MDRD 70 (>89); GLUCOSE 147 mg/dL (70-100); HDL CHOLESTEROL 38 mg/dL; LDL CHOLESTEROL,CALCULATED 78 mg/dL; LDL/HDL RATIO 2.1 (<4.4); POTASSIUM 4.1 mmol/L (3.5-5.0); SODIUM 142 mmol/L (135-145); TOTAL PROTEIN 7.5 g/dL (6.7-8.2); TRIGLYCERIDES 292 mg/dL; VLDL CHOLESTEROL 58 mg/dL
== END 2021-01-05 09:15 | disposition home or self-care (01) ==
LOC: LAB.S 09:14
PROVIDERS: ATTEND Internal Medicine
DX: E78.5 Hyperlipidemia, unspecified (principal); Z79.899 Other long term (current) drug therapy
CPT/HCPCS: 36415; 80053; 80061; 83721; 85025

== ENCOUNTER 2021-07-23 09:14 | Outpatient (CLI) | payer MEDICARE, MEDICAID ==
[2021-07-23 15:34] LABS: BASOPHILS # (AUTO) 0.1 10^3/uL (0.0-0.1); BASOPHILS % (AUTO) 0.9 %; EOSINOPHILS # (AUTO) 0.1 10^3/uL (0.0-0.7); EOSINOPHILS % (AUTO) 1.7 %; HCT - HEMATOCRIT 42.9 % (37.0-47.0); HGB - HEMOGLOBIN 13.5 g/dL (12.0-16.0); LYMPHOCYTES # (AUTO) 1.8 10^3/uL (1.5-3.5); LYMPHOCYTES % (AUTO) 31.4 %; MEAN CORPUSCULAR HEMOGLOBIN 27.4 pg (27.0-31.0); MEAN CORPUSCULAR HGB CONC 31.5 g/dL (32.0-36.0); MEAN CORPUSCULAR VOLUME 87.2 fL (81.0-99.0); MONOCYTES # (AUTO) 0.5 10^3/uL (0.0-1.0); NEUTROPHILS # (AUTO) 3.4 10^3/uL (1.5-6.6); NEUTROPHILS % (AUTO) 57.8 %; PLT - PLATELET COUNT 235 10^3/uL (130-450); RED BLOOD COUNT 4.92 10^6/uL (4.20-5.40); RED CELL DISTRIBUTION WIDTH 14.6 % (12.0-15.0); WHITE BLOOD COUNT 5.9 x10^3/uL (4.8-10.8)
[2021-07-23 15:37] LABS: ALBUMIN 4.3 g/dL (3.2-5.5); ALBUMIN/GLOBULIN RATIO 1.4 (1.0-2.2); BILIRUBIN,TOTAL 0.6 mg/dL (0.2-1.0); CALCIUM 9.2 mg/dL (8.5-10.3); CREATININE 0.7 mg/dL (0.4-1.0); TOTAL PROTEIN 7.4 g/dL (6.7-8.2)
[2021-07-23 15:44] LABS: CREATININE,URINE 144.3 mg/dL; MICROALBUMIN,URINE 2.6 mg/dL (0-300.0)
[2021-07-23 20:00] LABS: ESTIMATED AVERAGE GLUCOSE 157 mg/dL (70-100); HEMOGLOBIN A1c% 7.1 % (4.27-6.07)
== END 2021-07-23 09:15 | disposition home or self-care (01) ==
LOC: LAB.S 09:14
PROVIDERS: ATTEND Internal Medicine
DX: E11.9 Type 2 diabetes mellitus without complications (principal)
CPT/HCPCS: 36415; 80053; 82043; 82570; 83036; 85025

== ENCOUNTER 2021-09-28 13:53 | Outpatient (CLI) | payer MEDICARE, MEDICAID ==
--- NOTE | 2021-09-29 13:40 | Mammography Report ---
BILATERAL DIGITAL SCREENING MAMMOGRAM 3D/2D: 09/28/2021 CLINICAL: Routine screening. Comparison is made to exams dated: 06/13/2016 mammogram and 11/21/2014 mammogram - [facility]. There are scattered fibroglandular elements in both breasts. No significant masses, calcifications, or other findings are seen in either breast. There has been no significant interval change. IMPRESSION: NEGATIVE There is no mammographic evidence of malignancy. A 1 year screening mammogram is recommended. This exam was interpreted at Station ID: [id number]. NOTE: For mammograms, a report in lay terms will be sent to the patient. Approximately 15% of breast malignancies will not be visualized mammographically. In the management of a palpable breast mass, a negative mammogram must not discourage biopsy of a clinically suspicious lesion. Electronically Signed By: Marimar prescott/kenyon:09/28/2021 17:50:30 ACR BI-RADS Category 1: Negative 3341F PARENCHYMAL PATTERN: (A) - The breast(s) demonstrate(s) scattered fibroglandular densities. BI-RADS CATEGORY: (1) - 1 RECOMMENDATION: (ANNUAL) - Recommend routine annual screening mammography. [id number] 1 year screening LATERALITY: (B)
== END 2021-09-28 13:54 | disposition home or self-care (01) ==
LOC: DI.S 13:53
PROVIDERS: ATTEND Internal Medicine
DX: Z12.31 Encounter for screening mammogram for malignant neoplasm of breast (principal)

== ENCOUNTER 2021-11-25 08:00 | Outpatient (CLI) | payer MEDICARE, MEDICAID ==
[2021-11-28 19:06] LABS: GIARDIA LAMBLIA AG EIA Positive (Negative)
== END 2021-11-25 23:59 | disposition home or self-care (01) ==
LOC: LAB.S 08:00
PROVIDERS: ATTEND Physician Assistant Medical
DX: R19.7 Diarrhea, unspecified (principal)
CPT/HCPCS: 87045; 87046; 87177; 87328; 87329; 87427

== ENCOUNTER 2022-05-03 00:48 | Outpatient (CLI) | payer MEDICARE, MEDICAID | END 2022-05-03 00:49 | disposition critical access hospital (66) | LOC: EMS 00:48 | DX: R11.10 Vomiting, unspecified (principal); R19.7 Diarrhea, unspecified; R53.1 Weakness | CPT/HCPCS: A0425; A0429 ==

== ENCOUNTER 2022-05-03 01:22 | Emergency (ER) | payer MEDICARE, MEDICAID ==
--- NOTE | 2022-05-03 01:29 | ED Physician Documentation ---
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 no known sick contacts. denies urinary sx. also with BL LQ abd pain radiating upward, sudden onset, sharp, moderate severity, better with morphine. PSH open cholecystectomy Review of Systems Ten Systems: 10 systems reviewed and negative Constitutional: reports: Fever, Chills, Myalgias, Fatigue Cardiac: denies: Chest pain / pressure Respiratory: denies: Dyspnea GI: reports: Nausea, Vomiting, Diarrhea : denies: Dysuria PD PAST MEDICAL HISTORY - Past Medical History Neuro: TIA - Past Surgical History Past Surgical History: Yes General: Cholecystectomy - Present Medications Home Medications: Ambulatory Orders Medication Instructions Recorded Confirmed Atorvastatin [Lipitor] 20 mg 09/28/17 Clopidogrel [Plavix] 75 mg PO DAILY #30 tablet 09/28/17 Amox/Clav 875/125 [Augmentin 1 tablet PO Q12H 7 Days #14 tablet 05/03/22 875/125 Tab] Losartan [Cozaar] 05/03/22 05/03/22 Ondansetron Odt [Zofran Odt] 4 mg TL Q6H PRN #10 tablet 05/03/22 - Allergies Allergies/Adverse Reactions: Allergies Allergy/AdvReac Type Severity Reaction Status Date / Time No Known Drug Allergies Allergy Verified 05/03/22 01:50 - Social History Does the pt smoke?: Yes Smoking Status: Current every day smoker Does the pt drink ETOH?: No Does the pt have substance abuse?: No - Immunizations Immunizations are current?: No Immunizations: TDAP >10years/unknown PD ED PE NORMAL - Vitals Vital signs reviewed: Yes - General General: Alert and oriented X 3, Other (uncomfortable appearing) - HEENT HEENT: Atraumatic, PERRL, EOMI, Moist mucous membranes, Pharynx benign - Neck Neck: Supple, no meningeal sign - Cardiac Cardiac: RRR - Respiratory Respiratory: No respiratory distress, Clear bilaterally - Abdomen Abdomen: Non tender, Non distended - Back Back: No CVA TTP - Derm Derm: Normal color, Warm and dry - Extremities Extremities: No deformity - Neuro Neuro: Alert and oriented X 3, No motor deficit, No sensory deficit - Psych Psych: Normal mood, Normal affect Results - Vitals Vitals: Vital Signs - 24 hr 05/03/22 05/03/22 05/03/22 01:23 01:50 02:03 Temperature 36.1 C L Heart Rate 97 91 88 Respiratory 22 24 22 Rate Blood Pressure 141/61 H 141/61 H 113/64 O2 Saturation 100 100 94 05/03/22 05/03/22 05/03/22 02:31 04:02 05:05 Temperature Heart Rate 87 84 Respiratory 18 17 14 Rate Blood Pressure 117/59 L 122/65 O2 Saturation 96 95 Oxygen O2 Source Room air - Labs Labs: Laboratory Tests 05/03/22 05/03/22 05/03/22 01:30 01:42 01:42 WBC 17.8 H RBC 5.99 H Hgb 16.3 H Hct 53.3 H MCV 89.0 MCH 27.2 MCHC 30.6 L RDW 14.0 Plt Count 282 MPV 9.8 Neut # (Auto) Not Reportable Lymph # (Auto) Not Reportable Banks # (Auto) Not Reportable Eos # (Auto) Not Reportable Baso # (Auto) Not Reportable Absolute Nucleated RBC Not Reportable Total Counted 100 Band Neuts % (Manual) 2 Abnorm Lymph % (Manual) 0 Nucleated RBC % Not Reportable Neutrophils # (Manual) 13.0 H Lymphocytes # (Manual) 2.7 Monocytes # (Manual) 2.1 H Eosinophils # (Manual) 0.0 Basophils # (Manual) 0.0 Differential Comment MANUAL DIFFERENTIAL WBC Morphology NORMAL APPEARANCE Platelet Estimate NORMAL (130-450,000) Platelet Morphology NORMAL APPEARANCE RBC Morph Micro Appear NORMAL APPEARANCE Sodium 143 Potassium 4.3 Chloride 103 Carbon Dioxide 25 Anion Gap 15.0 H BUN 32 H Creatinine 1.1 H Estimated GFR (MDRD) 48 L Glucose 170 H Calcium 10.2 Total Bilirubin 0.4 AST 25 ALT 19 Alkaline Phosphatase 74 Total Protein 9.4 H Albumin 5.3 Globulin 4.1 Albumin/Globulin Ratio 1.3 Lipase 57 H Nasal Adenovirus (PCR) NOT DETECTED Nasal B. parapertussis DNA (PCR) NOT DETECTED Nasal Coronavir 229E PCR NOT DETECTED Nasal Coronavir HKU1 PCR NOT DETECTED Nasal Coronavir NL63 PCR NOT DETECTED Nasal Coronavir OC43 PCR NOT DETECTED Nasal Enterovir/Rhinovir PCR NOT DETECTED Nasal Influenza B PCR NOT DETECTED Nasal Influenza A PCR NOT DETECTED Nasal Parainfluen 1 PCR NOT DETECTED Nasal Parainfluen 2 PCR NOT DETECTED Nasal Parainfluen 3 PCR NOT DETECTED Nasal Parainfluen 4 PCR NOT DETECTED Nasal RSV (PCR) NOT DETECTED Nasal B.pertussis DNA PCR NOT DETECTED Nasal C.pneumoniae (PCR) NOT DETECTED Frank Human Metapneumo PCR NOT DETECTED Nasal M.pneumoniae (PCR) NOT DETECTED Nasal SARS-CoV-2 (PCR) NOT DETECTED PD Medical Decision Making - ED course ED course: 76yF p/w n/v/d X 1.5h. will treat symptomatically, reevaluate. Patient much improved s/p zofran, morphine. nausea and pain resolved but she c/o persistent chills. Most likely this is viral gastroenteritis but given her rvp is negative we will employ ct to evaluate for appendicitis. CT showed mild gastroenteritis. d/w patient that this is likely viral however if she doesn't have improvement in 72 hours she may fill rx for antibiotics at her pharmacy. patient tolerating sips of water and crackers, feeling much better. return precautions given. plan to f/u with pcp. Departure - Departure Disposition: 01 Home, Self Care Clinical Impression: Nausea & vomiting, Diarrhea Condition: Stable Instructions: ED Diarrhea Viral, ED Diet Vomiting Diarrhea Prescriptions: Amox/Clav 875/125 [Augmentin 875/125 Tab] 1 tablet PO Q12H 7 Days #14 tablet Ondansetron Odt [Zofran Odt] 4 mg TL Q6H PRN #10 tablet PRN Reason: Nausea / Vomiting Comments: You are seen in the emergency department for vomiting and diarrhea. You likely have a viral gastroenteritis (stomach bug). Make sure that you stay well- hydrated and get electrolyte solution to drink from your local pharmacy. Prescriptions were sent electronically for antinausea medicine (Zofran) and antibiotics. You can fill the Zofran but you should hold off on filling the antibiotics for 72 hours since this is likely viral. Return to the emergency department if you have any new or worsening symptoms or other concerns. Follow- up with your primary care provider.
[2022-05-03] MEDS: SODIUM CHLORIDE 0.9% 1,000 ML IV STA ×2 (01:51→02:32)
[2022-05-03] MEDS: ONDANSETRON 4 MG/2 ML VIAL IVP STA (01:51)
[2022-05-03] MEDS: MORPHINE 10 MG/ML VIAL IVP STA (01:52)
[2022-05-03 02:18] LABS: ALBUMIN 5.3 g/dL (3.2-5.5); ALBUMIN/GLOBULIN RATIO 1.3 (1.0-2.2); BILIRUBIN,TOTAL 0.4 mg/dL (0.2-1.0); CALCIUM 10.2 mg/dL (8.5-10.3); CREATININE 1.1 mg/dL (0.4-1.0); POTASSIUM 4.3 mmol/L (3.5-5.0); TOTAL PROTEIN 9.4 g/dL (6.7-8.2)
[2022-05-03 02:21] LABS: BASOPHILS % (AUTO) 0.4 %; EOSINOPHILS % (AUTO) 0.3 %; HCT - HEMATOCRIT 53.3 % (37.0-47.0); HGB - HEMOGLOBIN 16.3 g/dL (12.0-16.0); LYMPHOCYTES % (AUTO) 11.6 %; MEAN CORPUSCULAR HEMOGLOBIN 27.2 pg (27.0-31.0); MEAN CORPUSCULAR HGB CONC 30.6 g/dL (32.0-36.0); MEAN PLATELET VOLUME 9.8 fL (7.9-10.8); NEUTROPHILS % (AUTO) 78.2 %; PLT - PLATELET COUNT 282 10^3/uL (130-450); RED BLOOD COUNT 5.99 10^6/uL (4.20-5.40); WHITE BLOOD COUNT 17.8 x10^3/uL (4.8-10.8)
[2022-05-03 02:40] LABS: ABNORMAL LYMPHS % (MANUAL) 0 %
[2022-05-03 02:41] LABS: BAND NEUTROPHILS % (MANUAL) 2 %; DIFFERENTIAL COMMENT MANUAL DIFFERENTIAL; LYMPHOCYTES # (MANUAL) 2.7 10^3/uL (1.5-3.5); LYMPHOCYTES % (MANUAL) 15 %; MONOCYTES # (MANUAL) 2.1 10^3/uL (0.0-1.0); PLATELET ESTIMATE, MANUAL NORMAL (130-450,000) (NORMAL); PLATELET MORPHOLOGY NORMAL APPEARANCE (NORMAL); RBC MORPHOLOGY (MULTIPLE) NORMAL APPEARANCE (NORMAL); WBC MORPHOLOGY (MULTIPLE) NORMAL APPEARANCE (NORMAL)
[2022-05-03 02:50] LABS: B. PARAPERTUSSIS- RESP PCR PAN NOT DETECTED; B. PERTUSSIS- RESP PCR PANEL NOT DETECTED; C. PNEUMONIAE- RESP PCR PANEL NOT DETECTED; CORONAVIRUS 229E-RESP PCR NOT DETECTED; CORONAVIRUS HKU1-RESP PCR NOT DETECTED; CORONAVIRUS NL63-RESP PCR NOT DETECTED; CORONAVIRUS OC43-RESP PCR NOT DETECTED; HUMAN METAPNEUMOVIRUS NOT DETECTED; INFLUENZA A- RESP PCR PANEL NOT DETECTED; INFLUENZA B - RESP PCR PANEL NOT DETECTED; M. PNEUMONIAE- RESP PCR PANEL NOT DETECTED; PARAINFLUENZA VIRUS 1 NOT DETECTED; PARAINFLUENZA VIRUS 2 NOT DETECTED; PARAINFLUENZA VIRUS 3 NOT DETECTED; PARAINFLUENZA VIRUS 4 NOT DETECTED; RHINOVIRUS/ENTEROVIRUS NOT DETECTED; RSV- RESP PCR PANEL NOT DETECTED; SARS-CoV-2 -RESP PCR PANEL NOT DETECTED
[2022-05-03] MEDS ORDERED: iohexoL-300 100 ML VIAL ONE (03:13)
[2022-05-03] MEDS: iohexoL-300 100 ML VIAL IVP ONE (04:07)
[2022-05-03 05:21] VITALS: BP 122/65
--- NOTE | 2022-05-03 10:25 | CT Report ---
PROCEDURE: ABDOMEN/PELVIS W INDICATIONS: BL LQ pain, n/v/d, sudden onset CONTRAST: Omni 300 100ml TECHNIQUE: After the administration of IV contrast, 5 mm thick sections acquired from the diaphragms to the symp hysis. 5 mm thick coronal and sagittal reformats were acquired. For radiation dose reduction, the f ollowing was used: automated exposure control, adjustment of mA and/or kV according to patient size. COMPARISON: Ultrasound abdomen, 06/04/2013. FINDINGS: Image quality: Excellent. ABDOMEN: Lung bases: Lung bases are clear. Heart size is normal. Small hiatal hernia. Solid organs: Liver is normal in size. Mild hepatic steatosis. Liver and spleen are normal in size a nd enhancement. There is a 1.7 cm splenule. Gallbladder is not visualized, presumably surgically kieran poncho. Biliary system is non dilated. Pancreas enhances normally. Mild left adrenal thickening and no dularity. Kidneys demonstrate normal size and enhancement, without hydronephrosis. Peritoneum and bowel: Bowel loops demonstrate normal wall thickness and caliber. There is fluid wit hin the small intestine to and: Loops and increased small bowel and colon mucosal enhancement, consis tent with nonspecific enterocolitis. No findings to suggest small bowel obstruction. There are a few colonic diverticula. No acute diverticulitis. No free fluid or air. Nodes and vessels: There is mesenteric stranding. Numerous small mesenteric lymph nodes are seen. No largest retroperitoneal or mesenteric lymph nodes. Aorta and inferior vena cava are normal in size. Moderate to severe atherosclerotic calcifications. Miscellaneous: Tiny fat-containing umbilical hernia. PELVIS: Genitourinary: Bladder wall thickness is normal. Miscellaneous: No inguinal hernias or adenopathy. Bones: No suspicious bony lesions. No vertebral body compression fractures. Degenerative changes i n lumbar spine. IMPRESSION: 1. Mild enterocolitis is suspected. 2. Mesenteric panniculitis and adenitis. 3. Hepatic steatosis. No significant discrepancy with the preliminary interpretation. Reviewed by: Abhinav Isabel MD on 05/03/2022 10:23 AM PST Approved by: Abhinav Isabel MD on 05/03/2022 10:23 AM PST Station ID: [id number]
== END 2022-05-03 06:10 | disposition home or self-care (01) ==
LOC: EDUNIT# → ED 01:22
DX: R11.2 Nausea with vomiting, unspecified (principal); R19.7 Diarrhea, unspecified; Z20.822 Contact with and (suspected) exposure to COVID-19; F17.200 Nicotine dependence, unspecified, uncomplicated
CPT/HCPCS: 36415; 74177; 80053; 83690; 85025; 87633; 96361; 96374; 96375; 99284; Q9967

== ENCOUNTER 2022-10-24 08:45 | Outpatient (CLI) | payer MEDICARE, MEDICAID ==
[2022-10-24 14:27] LABS: BASOPHILS # (AUTO) 0.1 10^3/uL (0.0-0.1); BASOPHILS % (AUTO) 0.9 %; EOSINOPHILS # (AUTO) 0.1 10^3/uL (0.0-0.7); EOSINOPHILS % (AUTO) 1.7 %; HCT - HEMATOCRIT 42.9 % (37.0-47.0); HGB - HEMOGLOBIN 13.5 g/dL (12.0-16.0); LYMPHOCYTES # (AUTO) 1.8 10^3/uL (1.5-3.5); LYMPHOCYTES % (AUTO) 32.7 %; MEAN CORPUSCULAR HEMOGLOBIN 27.5 pg (27.0-31.0); MEAN CORPUSCULAR HGB CONC 31.5 g/dL (32.0-36.0); MEAN CORPUSCULAR VOLUME 87.4 fL (81.0-99.0); MEAN PLATELET VOLUME 9.8 fL (7.9-10.8); MONOCYTES # (AUTO) 0.4 10^3/uL (0.0-1.0); NEUTROPHILS % (AUTO) 56.3 %; PLT - PLATELET COUNT 228 10^3/uL (130-450); RED BLOOD COUNT 4.91 10^6/uL (4.20-5.40); RED CELL DISTRIBUTION WIDTH 14.2 % (12.0-15.0); WHITE BLOOD COUNT 5.4 x10^3/uL (4.8-10.8)
[2022-10-24 14:51] LABS: BUN - BLOOD UREA NITROGEN 18 mg/dL (6-20); CALCIUM 8.7 mg/dL (8.5-10.3); CARBON DIOXIDE - CO2 24 mmol/L (21-32); CHLORIDE 110 mmol/L (101-111); CHOLESTEROL 161 mg/dL; CREATININE 0.7 mg/dL (0.4-1.0); GFR - MDRD 82 (>89); GLUCOSE 143 mg/dL (70-100); HDL CHOLESTEROL 40 mg/dL; LDL CHOLESTEROL,CALCULATED 87 mg/dL; LDL/HDL RATIO 2.2 (<4.4); POTASSIUM 3.9 mmol/L (3.5-5.0); SODIUM 140 mmol/L (135-145); TRIGLYCERIDES 169 mg/dL; VLDL CHOLESTEROL 34 mg/dL
== END 2022-10-24 08:46 | disposition home or self-care (01) ==
LOC: LAB.S 08:45
PROVIDERS: ATTEND Internal Medicine Cardiovascular Disease
DX: I10 Essential (primary) hypertension (principal); E78.5 Hyperlipidemia, unspecified
CPT/HCPCS: 36415; 80048; 80061; 83721; 85025

== ENCOUNTER 2023-03-16 11:16 | Outpatient (CLI) | payer MEDICARE, MEDICAID ==
[2023-03-16 14:43] LABS: BASOPHILS # (AUTO) 0.1 10^3/uL (0.0-0.1); EOSINOPHILS # (AUTO) 0.1 10^3/uL (0.0-0.7); EOSINOPHILS % (AUTO) 1.4 %; HCT - HEMATOCRIT 42.2 % (37.0-47.0); HGB - HEMOGLOBIN 13.4 g/dL (12.0-16.0); LYMPHOCYTES # (AUTO) 1.8 10^3/uL (1.5-3.5); LYMPHOCYTES % (AUTO) 36.5 %; MEAN CORPUSCULAR HEMOGLOBIN 27.4 pg (27.0-31.0); MEAN CORPUSCULAR HGB CONC 31.8 g/dL (32.0-36.0); MEAN CORPUSCULAR VOLUME 86.3 fL (81.0-99.0); MEAN PLATELET VOLUME 9.6 fL (7.9-10.8); MONOCYTES # (AUTO) 0.4 10^3/uL (0.0-1.0); MONOCYTES % (AUTO) 7.8 %; NEUTROPHILS # (AUTO) 2.7 10^3/uL (1.5-6.6); NEUTROPHILS % (AUTO) 53.1 %; PLT - PLATELET COUNT 222 10^3/uL (130-450); RED BLOOD COUNT 4.89 10^6/uL (4.20-5.40); RED CELL DISTRIBUTION WIDTH 13.9 % (12.0-15.0)
[2023-03-16 15:17] LABS: BUN - BLOOD UREA NITROGEN 21 mg/dL (6-20); CALCIUM 9.1 mg/dL (8.5-10.3); CARBON DIOXIDE - CO2 26 mmol/L (21-32); CHLORIDE 108 mmol/L (101-111); CHOL/HDL RATIO 3.6 (<4.4); CHOLESTEROL 135 mg/dL; CREATININE 0.7 mg/dL (0.6-1.3); GFR - MDRD 81 (>89); GLUCOSE 126 mg/dL (74-104); HDL CHOLESTEROL 37 mg/dL; POTASSIUM 4.2 mmol/L (3.5-4.5); SODIUM 138 mmol/L (135-145)
[2023-03-16 16:01] LABS: THYROID STIMULATING HORMONE 0.64 uIU/mL (0.34-5.60)
[2023-03-16 16:28] LABS: LDL CHOLESTEROL,CALCULATED 58 mg/dL; LDL/HDL RATIO 1.6 (<4.4); TRIGLYCERIDES 199 mg/dL (48-352); VLDL CHOLESTEROL 40 mg/dL
[2023-03-16 20:38] LABS: ESTIMATED AVERAGE GLUCOSE 146 mg/dL (70-100); HEMOGLOBIN A1c% 6.7 % (4.27-6.07)
== END 2023-03-16 11:17 | disposition home or self-care (01) ==
LOC: LAB.S 11:16
PROVIDERS: ATTEND Internal Medicine Cardiovascular Disease
DX: I10 Essential (primary) hypertension (principal); E78.5 Hyperlipidemia, unspecified; Z13.29 Encounter for screening for other suspected endocrine disorder
CPT/HCPCS: 36415; 80048; 80061; 83036; 83721; 84443; 85025

== ENCOUNTER 2023-05-01 07:00 | Outpatient (CLI) | payer MEDICARE, MEDICAID ==
--- NOTE | 2023-05-01 14:09 | XRAY Report ---
PROCEDURE: Ribs w/PA Chest LT INDICATIONS: UNSPECIFIED FALL TECHNIQUE: 2 views of the left ribs were acquired, along with a single view chest. COMPARISON: 07/28/2017 FINDINGS: Surgical changes and devices: None. Bones and chest wall: No fractures or dislocations. No suspicious bony lesions. Overlying soft tis sues appear unremarkable. Lungs and pleura: No pleural effusions or pneumothorax. Lungs appear clear. Mediastinum: Mediastinal contours appear normal. Heart size is normal. IMPRESSION: No displaced rib fracture, effusion or pneumothorax. Reviewed by: Beata Flores MD on 05/01/2023 2:08 PM PST Approved by: Beata Flores MD on 05/01/2023 2:08 PM PST Station ID: [id number]
--- NOTE | 2023-05-01 16:27 | XRAY Report ---
PROCEDURE: Shoulder 3 View LT INDICATIONS: LEFT SHOULDER PAIN TECHNIQUE: 3 views of the shoulder were acquired. COMPARISON: None. FINDINGS: Bones: Left shoulder without acute fracture or dislocation. Moderate-severe degenerative changes of the left acromioclavicular and glenohumeral joints. A BB marker is noted over the left chest. A minim ally displaced lateral left sixth rib fractures visualized. No pneumothorax visualized.. No suspicio us bony lesions. Visualized ribs appear intact. Soft tissues: No suspicious soft tissue calcifications. The visualized lungs are within normal limi ts. IMPRESSION: Left shoulder without acute fracture or dislocation. Moderate-severe degenerative changes of the left acromioclavicular and glenohumeral joints. Minimally displaced acute lateral left sixth rib fracture. No pneumothorax visualized Reviewed by: Jordan Madden MD on 05/01/2023 4:26 PM PST Approved by: Jordan Madden MD on 05/01/2023 4:26 PM PST Station ID: [id number]
== END 2023-05-01 23:59 | disposition home or self-care (01) ==
LOC: DI.S 07:00
PROVIDERS: ATTEND Registered Nurse
DX: S22.32XA Fracture of one rib, left side, initial encounter for closed fracture (principal); M19.012 Primary osteoarthritis, left shoulder

== ENCOUNTER 2023-06-24 07:33 | Outpatient (CLI) | payer MEDICARE, MEDICAID ==
--- NOTE | 2023-06-25 12:57 | Ultrasound Report ---
PROCEDURE: Abdomen Limited INDICATIONS: LIVER LESION TECHNIQUE: Real-time focused scanning was performed of the abdomen, with image documentation. COMPARISONS: CT abdomen and pelvis on May 03, 2022. FINDINGS: Liver: Liver is normal in size and homogeneous in echotexture. Liver parenchyma is diffusely echogen ic. Main portal vein is patent with hepatopedal flow. Gallbladder: Cholecystectomy. Biliary ducts: Intrahepatic bile ducts are non-dilated. Extrahepatic bile duct caliber measures 3 m m. Normal is 6-7 mm or less in diameter, or 10 mm or less post-cholecystectomy. Pancreas: Head appears unremarkable. Body and tail are not well seen secondary to bowel gas. Right kidney: Normal in size and echotexture. Right kidney measures 11.1 cm long. No hydronephrosis or nephrolithiasis. No solid masses. No complex renal cystic lesions which require follow-up. Anecho ic cyst in the right upper pole measuring 0.7 x 1.1 x 0.9 cm with a hyperechoic focus measuring 0.7 x 0.4 x 0.9 cm. Anechoic simple cyst in the interpolar region measuring 1.3 x 1 [address] evidence of a stone on prior CT dated May 03, 2022. Aorta: Visualized aorta is normal in caliber at less than 3 cm. IVC: Intrahepatic inferior vena cava is patent. Miscellaneous: No free abdominal fluid. IMPRESSION: 1.Liver parenchyma is diffusely echogenic which may represent parenchymal disease such as steatosis.N o sonographic evidence of a liver mass. If there is high clinical suspicion, consider cross-sectional imaging (liver mass protocol) for further evaluation. 2.Anechoic cyst in the right upper pole measuring 0.7 x 1.1 x 0.9 cm with a hyperechoic focus measuri ng 0.7 x 0.4 x 0.9 cm. Findings are suggestive of a Bosniak 2F cyst versus a nephrolith. Recommend a repeat ultrasound in 6 months. Reviewed by: Balta Crowe MD on 06/25/2023 12:56 PM PST Approved by: Balta Crowe MD on 06/25/2023 12:56 PM PST Station ID: [id number]
== END 2023-06-24 07:34 | disposition home or self-care (01) ==
LOC: DI 07:33
PROVIDERS: ATTEND Family Medicine
DX: K76.89 Other specified diseases of liver (principal); N28.1 Cyst of kidney, acquired; Z12.11 Encounter for screening for malignant neoplasm of colon; M16.12 Unilateral primary osteoarthritis, left hip
CPT/HCPCS: 82274

== ENCOUNTER 2023-06-24 08:00 | Outpatient (CLI) | payer MEDICARE, MEDICAID ==
[2023-06-24 18:47] LABS: FECAL OCCULT BLOOD (FIT) NEGATIVE (NEGATIVE)
== END 2023-06-24 23:59 | disposition home or self-care (01) ==
LOC: LAB.R 08:00
PROVIDERS: ATTEND Family Medicine
DX: Z12.11 Encounter for screening for malignant neoplasm of colon (principal)
CPT/HCPCS: 82274

== ENCOUNTER 2023-06-24 08:00 | Outpatient (CLI) | payer MEDICARE, MEDICAID ==
--- NOTE | 2023-06-24 20:02 | XRAY Report ---
PROCEDURE: Hip w/Pelvis 2-3V LT INDICATIONS: LEFT HIP PAIN TECHNIQUE: 2 views of the hip were acquired. COMPARISON: Right hip radiograph on June 18, 2020. FINDINGS: Bones: No fractures or dislocations. Moderate left hip joint space narrowing and juxta-articular os teophytosis. No suspicious bony lesions. Degenerative changes of the lower lumbar spine and bilateral SI joints. Limited view demonstrates visualized total hip arthroplasty is intact without complicatio n. Soft tissues: No suspicious soft tissue calcifications or masses. IMPRESSION: 1.No acute bony abnormality. If there is high clinical suspicion for a radiographically occult fractu re, consider cross-sectional imaging for further evaluation. 2.Moderate left hip osteoarthritis. Reviewed by: Balta Crowe MD on 06/24/2023 8:00 PM PST Approved by: Balta Crowe MD on 06/24/2023 8:00 PM PST Station ID: [id number]
== END 2023-06-24 23:59 | disposition home or self-care (01) ==
LOC: DI.S 08:00
PROVIDERS: ATTEND Physician Assistant Medical
DX: M16.12 Unilateral primary osteoarthritis, left hip (principal)

== ENCOUNTER 2023-07-31 10:34 | Outpatient (CLI) | payer MEDICARE, MEDICAID ==
--- NOTE | 2023-08-01 10:32 | Mammography Report ---
BILATERAL DIGITAL SCREENING MAMMOGRAM 3D/2D: 07/31/2023 CLINICAL: Routine screening. Comparison is made to exams dated: 09/28/2021 mammogram, 06/13/2016 mammogram, and 11/21/2014 mammogram - [facility]. There are scattered areas of fibroglandular density in both breasts (category b / 25%-50% glandular t issue). There is a biopsy clip in the left breast. No significant masses, calcifications, or other findings are seen in either breast. There has been no significant interval change. IMPRESSION: NEGATIVE There is no mammographic evidence of malignancy. A 1 year screening mammogram is recommended. Based on the Tyrer Cuzick model (a risk assessment model) the patient's lifetime risk is 1.9% and her 10 year risk is 0.0%. According to the ACR, ACS, and NCCN guidelines, an annual breast MRI exam ash g with mammogram is recommended if the patient's lifetime risk is 20% or greater. This exam was interpreted at Station ID: [id number]. NOTE: For mammograms, a report in lay terms will be sent to the patient. Approximately 15% of breast malignancies will not be visualized mammographically. In the management of a palpable breast mass, a negative mammogram must not discourage biopsy of a clinically suspicious lesion. Electronically Signed By: Esteban price/kenyon:07/31/2023 18:52:12 letter sent: No_Letter ACR BI-RADS Category 1: Negative 3341F PARENCHYMAL PATTERN: (A) - The breast(s) demonstrate(s) scattered fibroglandular densities. BI-RADS CATEGORY: (1) - 1 RECOMMENDATION: (ANNUAL) - Recommend routine annual screening mammography. [id number] 1 year screening LATERALITY: (B)
== END 2023-07-31 10:35 | disposition home or self-care (01) ==
LOC: DI.S 10:34
PROVIDERS: ATTEND Family Medicine
DX: Z12.31 Encounter for screening mammogram for malignant neoplasm of breast (principal); R92.323 Mammographic fibroglandular density, bilateral breasts

== ENCOUNTER 2023-12-25 18:49 | Outpatient (CLI) | payer MEDICARE, MEDICAID ==
--- NOTE | 2023-12-26 16:31 | Ultrasound Report ---
PROCEDURE: Renal (Retroperitoneal) INDICATIONS: RENAL CYST TECHNIQUE: Real-time scanning was performed of the retroperitoneal organs, with image documentation. COMPARISON: Abdominal ultrasound on June 24, 2023. CT abdomen and pelvis on May 03, 2022. FINDINGS: Kidneys: Kidneys are normal in size. Right kidney measures 11.2 cm long; left kidney measures 10.9 cm long. Right renal cortical thickness is 1.5 cm; left renal cortical thickness is 1.5 cm. Echogeni c focus in the right interpolar region measuring 0.8 x 0.4 cm. Right lower pole anechoic simple cyst measuring 1.1 x 1.3 cm. Bladder: Pre-void bladder volume is 235 mL. Post-void residual is 29 mL. Pre-void images demonstra te no intraluminal masses or stones. On pre-void images, bilateral ureteral jets are noted with colo r Doppler interrogation. (Of note, ureteral jets may not be detectable in up to 25% of cases due to insufficient differences in specific gravity between ureteral and bladder urine). Miscellaneous: No free abdominal fluid. IMPRESSION: 1.Right lower pole anechoic simple cyst measuring 1.1 x 1.3 cm. 2.Echogenic focus in the right interpolar region measuring 0.8 x 0.4 cm likely represents a nonobstru ctive nephrolith. 3.Previously described cyst in the right upper pole with hyperechoic focus on June 25, 2023 is no t seen on today's ultrasound. Reviewed by: Balta Crowe MD on 12/26/2023 4:29 PM PDT Approved by: Balta Crowe MD on 12/26/2023 4:29 PM PDT Station ID: [id number]
== END 2023-12-25 18:50 | disposition home or self-care (01) ==
LOC: DI 18:49
PROVIDERS: ATTEND Family Medicine
DX: N28.1 Cyst of kidney, acquired (principal); R93.421 Abnormal radiologic findings on diagnostic imaging of right kidney

== ENCOUNTER 2024-01-17 08:34 | Outpatient (CLI) | payer MEDICARE, MEDICAID ==
--- NOTE | 2024-01-17 14:27 | Ultrasound Report ---
PROCEDURE: Aorta Screening INDICATIONS: CURRENT SMOKER TECHNIQUE: Real time scanning was performed of the aorta and iliac arteries, with image documentatio n. COMPARISON: CT 05/03/2022 FINDINGS: Aorta: Proximal aortic diameter measures 2.3 x 2.3 cm. Mid-aorta measures 2.3 x 2.3 cm. Distal aor tic diameter is 1.9 x 1.2 cm. Iliac arteries: Right common iliac artery measures 1.2 x 1.4 cm. Left common iliac artery measures 1.1 x 1.2 cm. IMPRESSION: No aneurysmal dilation. Recommended intervals for follow-up imaging of ectatic aortas and abdominal aortic aneurysms, per ACR consensus guidelines: 2.5-2.9 cm: 5 years 3.0-3.4 cm: 3 years 3.5-3.9 cm: 2 years 4.0-4.4 cm: 1 year 4.5-4.9 cm: 6 months + endovascular referral 5.0-5.5 cm: 3-6 months + endovascular referral Reviewed by: Claudine Dorman MD on 01/17/2024 2:25 PM PDT Approved by: Claudine Dorman MD on 01/17/2024 2:25 PM PDT Station ID: [id number]
== END 2024-01-17 08:35 | disposition home or self-care (01) ==
LOC: DI 08:34
PROVIDERS: ATTEND Family Medicine
DX: Z13.6 Encounter for screening for cardiovascular disorders (principal); F17.200 Nicotine dependence, unspecified, uncomplicated